=== PATIENT | female | born 1975 | race Caucasian/White ===

== ENCOUNTER 2019-01-26 11:13 | Emergency (ER) | payer OTHER ==
[2019-01-26 13:33] LABS: ADD MAN DIFF? NO
[2019-01-26 13:35] LABS: BASOPHIL # 0.1 10^3/ul (0.0-0.1); BASOPHILS % 1.1 % (0.0-2.0); EOSINOPHILS # 0.2 10^3/ul (0.0-0.5); HEMOGLOBIN 13.7 g/dl (12.0-16.0); LYMPHOCYTES % 27.9 % (15.0-51.0); MEAN CORPUSCULAR HEMOGLOBIN 28.8 pg (29.0-33.0); MEAN CORPUSCULAR HGB CONC 33.4 g/dl (32.0-37.0); MEAN CORPUSCULAR VOLUME 86.3 fl (82.0-101.0); MEAN PLATELET VOLUME 10.3 fl (7.4-10.4); MONOCYTE # 0.6 10^3/ul (0.3-0.9); MONOCYTES % 8.1 % (0.0-11.0); NEUTROPHIL # 4.2 10^3/ul (1.6-7.5); NEUTROPHILS % 59.8 % (39.0-77.0); PLATELET COUNT 294 10^3/UL (140-415); RED BLOOD COUNT 4.75 10^6/ul (4.20-5.40); RED CELL DISTRIBUTION WIDTH 12.7 % (11.5-14.5)
[2019-01-26 13:35] LABS: WHITE BLOOD COUNT 7.1 10^3/ul (4.8-10.8)
[2019-01-26 13:59] LABS: PHOSPHORUS 3.9 mg/dl (2.5-4.9)
[2019-01-26 13:59] LABS: MAGNESIUM 2.1 mg/dl (1.7-2.5)
[2019-01-26 14:00] LABS: ALANINE AMINOTRANSFERASE 26 IU/L (13-69); ALBUMIN 4.4 g/dl (3.3-4.9); ALBUMIN/GLOBULIN RATIO 1.51; ALKALINE PHOSPHATASE 139 IU/L (42-121); ANION GAP 8 (5-13); ASPARTATE AMINO TRANSFERASE 17 IU/L (15-46); BILIRUBIN,INDIRECT 0.3 mg/dl (0-1.1); BILIRUBIN,TOTAL 0.3 mg/dl (0.2-1.3); BLOOD UREA NITROGEN 7 mg/dl (7-20); CALCIUM 9.9 mg/dl (8.4-10.2); CARBON DIOXIDE 23 mmol/L (21-31); CHLORIDE 111 mmol/L (97-110); CREATININE 0.76 mg/dl (0.44-1.00); Estimated GFR > 60 mL/min (>60); GLUCOSE 93 mg/dl (70-220); POTASSIUM 4.4 mmol/L (3.5-5.1); SODIUM 142 mmol/L (135-144); TOTAL PROTEIN 7.3 g/dl (6.1-8.1)
[2019-01-26 14:10] LABS: B-TYPE NATRIURETIC PEPTIDE 125 PG/ML (0-125); TROPONIN-I < 0.012 ng/ml (0.000-0.120)
[2019-01-26] MEDS: SOD CHLORIDE 0.9% 1,000 ML IV (16:04)
[2019-01-26] MEDS: HYDROmorphONE 0.5 MG/0.5 ML SYG IV (16:04)
[2019-01-26] MEDS: HYDROmorphONE 2 MG TAB PO (20:15)
== END 2019-01-26 20:19 | disposition home or self-care (01) ==
LOC: E/R 11:13
DX: R07.89 Other chest pain (principal); J45.909 Unspecified asthma, uncomplicated; F17.210 Nicotine dependence, cigarettes, uncomplicated; R19.7 Diarrhea, unspecified; Z91.040 Latex allergy status; Z91.010 Allergy to peanuts
CPT/HCPCS: 71045; 80053; 83735; 83880; 84100; 84484; 85025; 93005; 96374; 99285-25

== ENCOUNTER 2019-02-16 17:46 | Emergency (ER) | payer SELFPAY, OTHER | END 2019-02-16 21:57 | disposition left against medical advice (07) | LOC: E/R 17:46 | DX: Z53.21 Procedure and treatment not carried out due to patient leaving prior to being seen by health care provider (principal) ==

== ENCOUNTER 2019-03-02 12:47 | Inpatient (IN) | payer OTHER ==
[2019-03-02] MEDS: SOD CHLORIDE 0.9% 1,000 ML IV ×2 (15:50→17:36)
[2019-03-02 15:57] LABS: URINE BLOOD (Dip) POC Negative (NEGATIVE); URINE GLUCOSE (Dip) POC Negative (NEGATIVE); URINE KETONES (Dip) POC Trace (NEGATIVE); URINE LEUKOCYTE EST (Dip) POC Trace (NEGATIVE); URINE NITRITE (Dip) POC Negative (NEGATIVE); URINE TOTAL PROTEIN POC 1+ (NEGATIVE)
[2019-03-02 15:57] LABS: URINE PH (Dip) POC 6.5 (5.0-8.5)
[2019-03-02] MEDS: IPRATROPIUM (NEB) 0.5 MG/2.5 ML AMP HHN (15:58)
[2019-03-02] MEDS: LEVALBUTEROL (NEB) 1.25 MG/0.5 ML AMP HHN (15:58)
[2019-03-02 16:18] LABS: ADD MAN DIFF? NO
[2019-03-02 16:20] LABS: BASOPHILS % 0.5 % (0.0-2.0); EOSINOPHILS # 0.2 10^3/ul (0.0-0.5); EOSINOPHILS % 2.2 % (0.0-7.0); HEMATOCRIT 40.4 % (37.0-47.0); LYMPHOCYTES # 1.9 10^3/ul (0.8-2.9); LYMPHOCYTES % 23.3 % (15.0-51.0); MEAN CORPUSCULAR HEMOGLOBIN 28.4 pg (29.0-33.0); MEAN CORPUSCULAR HGB CONC 32.2 g/dl (32.0-37.0); MEAN CORPUSCULAR VOLUME 88.2 fl (82.0-101.0); MEAN PLATELET VOLUME 10.7 fl (7.4-10.4); MONOCYTE # 0.6 10^3/ul (0.3-0.9); MONOCYTES % 6.8 % (0.0-11.0); NEUTROPHIL # 5.4 10^3/ul (1.6-7.5); PLATELET COUNT 254 10^3/UL (140-415); RED BLOOD COUNT 4.58 10^6/ul (4.20-5.40); RED CELL DISTRIBUTION WIDTH 12.8 % (11.5-14.5)
[2019-03-02 16:20] LABS: WHITE BLOOD COUNT 8.1 10^3/ul (4.8-10.8)
[2019-03-02 16:40] LABS: ALANINE AMINOTRANSFERASE 35 IU/L (13-69); ALBUMIN 4.1 g/dl (3.3-4.9); ALBUMIN/GLOBULIN RATIO 1.46; ALKALINE PHOSPHATASE 139 IU/L (42-121); ANION GAP 9 (5-13); ASPARTATE AMINO TRANSFERASE 23 IU/L (15-46); BILIRUBIN,INDIRECT 0.4 mg/dl (0-1.1); BILIRUBIN,TOTAL 0.4 mg/dl (0.2-1.3); BLOOD UREA NITROGEN 16 mg/dl (7-20); CALCIUM 9.6 mg/dl (8.4-10.2); CARBON DIOXIDE 26 mmol/L (21-31); CHLORIDE 107 mmol/L (97-110); CREATININE 0.97 mg/dl (0.44-1.00); Estimated GFR > 60 mL/min (>60); GLUCOSE 89 mg/dl (70-220); LIPASE 15 U/L (23-300); POTASSIUM 4.2 mmol/L (3.5-5.1); SODIUM 142 mmol/L (135-144); TOTAL PROTEIN 6.9 g/dl (6.1-8.1)
[2019-03-02] MEDS ORDERED: TIZANIDINE 2 MG TAB PO (22:00)
[2019-03-02] MEDS ORDERED: ACET/BUTAL/CAFF TAB PO (22:00)
[2019-03-03] MEDS: SUMATRIPTAN 50 MG TAB PO (00:04)
[2019-03-03] MEDS: LEVOFLOXACIN 500 MG TAB PO ×2 (00:21→15:12)
[2019-03-03] MEDS: ZOLPIDEM 5 MG TAB PO ×2 (00:22→20:49)
[2019-03-03] MEDS: POTASSIUM CHLORIDE 10 MEQ in SOD CHLORIDE 0.9% 1,000 ML IV ×4 (00:29→17:19)
[2019-03-03] MEDS: ALPRAZOLAM 0.5 MG TAB PO ×2 (02:07→08:32)
[2019-03-03 06:13] LABS: ADD MAN DIFF? NO
[2019-03-03 06:21] LABS: BASOPHILS % 0.6 % (0.0-2.0); EOSINOPHILS # 0.3 10^3/ul (0.0-0.5); HEMATOCRIT 39.3 % (37.0-47.0); HEMOGLOBIN 12.6 g/dl (12.0-16.0); LYMPHOCYTES # 1.7 10^3/ul (0.8-2.9); LYMPHOCYTES % 23.4 % (15.0-51.0); MEAN CORPUSCULAR HEMOGLOBIN 28.3 pg (29.0-33.0); MEAN CORPUSCULAR HGB CONC 32.1 g/dl (32.0-37.0); MEAN CORPUSCULAR VOLUME 88.3 fl (82.0-101.0); MONOCYTE # 0.6 10^3/ul (0.3-0.9); MONOCYTES % 8.5 % (0.0-11.0); NEUTROPHIL # 4.5 10^3/ul (1.6-7.5); NEUTROPHILS % 63.4 % (39.0-77.0); PLATELET COUNT 249 10^3/UL (140-415); RED BLOOD COUNT 4.45 10^6/ul (4.20-5.40); RED CELL DISTRIBUTION WIDTH 12.6 % (11.5-14.5)
[2019-03-03 06:21] LABS: WHITE BLOOD COUNT 7.1 10^3/ul (4.8-10.8)
[2019-03-03 06:40] LABS: ANION GAP 5 (5-13); BLOOD UREA NITROGEN 12 mg/dl (7-20); CALCIUM 9.6 mg/dl (8.4-10.2); CARBON DIOXIDE 26 mmol/L (21-31); CHLORIDE 110 mmol/L (97-110); CREATININE 0.74 mg/dl (0.44-1.00); Estimated GFR > 60 mL/min (>60); GLUCOSE 72 mg/dl (70-220); POTASSIUM 4.4 mmol/L (3.5-5.1); SODIUM 141 mmol/L (135-144)
[2019-03-03] MEDS: PANTOPRAZOLE (EC) 40 MG TAB PO (06:51)
[2019-03-03] MEDS: OXCARBAZEPINE 300 MG TAB PO ×2 (08:30→20:34)
[2019-03-03] MEDS: DICYCLOMINE 10 MG CAP PO ×2 (08:30→20:35)
[2019-03-03] MEDS: LORATADINE 10 MG TAB PO (08:30)
[2019-03-03] MEDS ORDERED: LACTOBACILLUS COMBO NO 10 PO (09:00)
[2019-03-03] MEDS ORDERED: NON-FORMULARY/PATIENT OWN MED (Varenicline Tartrate (Chantix) 1 MG) PO (09:00)
[2019-03-03] MEDS: GUAIFENESIN LA 600 MG TABSR PO ×2 (09:40→20:34)
[2019-03-03] MEDS: ONDANSETRON 4 MG TAB PO (09:40)
[2019-03-03] MEDS: HYDROmorphONE 2 MG TAB PO ×3 (09:40→20:34)
[2019-03-03 11:22] LABS: B-TYPE NATRIURETIC PEPTIDE 108 PG/ML (0-125)
[2019-03-03 12:40] LABS: LACTIC ACID 0.8 mmol/L (0.5-2.0)
[2019-03-03 12:41] LABS: TROPONIN-I < 0.012 ng/ml (0.000-0.120)
[2019-03-03 12:59] LABS: PROTIME 13.3 Sec (11.9-14.9)
[2019-03-03 13:57] LABS: D-DIMER < 220.00 ng/ml (<460)
[2019-03-03] MEDS: ALBUTEROL/IPRATROPIUM (NEB) 3 ML AMP HHN ×3 (14:44→22:49)
[2019-03-03] MEDS: predniSONE 20 MG TAB GTB (15:12)
[2019-03-03 19:42] LABS: TROPONIN-I < 0.012 ng/ml (0.000-0.120)
[2019-03-03] MEDS: PAROXETINE 20 MG TAB PO (20:34)
[2019-03-03] MEDS: DOCUSATE SODIUM 100 MG CAP PO (20:34)
[2019-03-03] MEDS: MONTELUKAST 10 MG TAB PO (20:34)
[2019-03-03] MEDS: HEPARIN 5,000 UNIT/1 ML VIAL SC (20:40)
[2019-03-04] MEDS: POTASSIUM CHLORIDE 10 MEQ in SOD CHLORIDE 0.9% 1,000 ML IV ×3 (00:19→14:15)
[2019-03-04] MEDS: ALPRAZOLAM 0.5 MG TAB PO (00:54)
[2019-03-04 01:20] LABS: TROPONIN-I < 0.012 ng/ml (0.000-0.120)
[2019-03-04] MEDS: PANTOPRAZOLE (EC) 40 MG TAB PO (05:25)
[2019-03-04 06:18] LABS: ADD MAN DIFF? NO
[2019-03-04 06:32] LABS: WHITE BLOOD COUNT 7.4 10^3/ul (4.8-10.8)
[2019-03-04 06:32] LABS: BASOPHILS % 0.3 % (0.0-2.0); EOSINOPHILS % 0.3 % (0.0-7.0); HEMATOCRIT 36.4 % (37.0-47.0); HEMOGLOBIN 11.7 g/dl (12.0-16.0); LYMPHOCYTES # 1.6 10^3/ul (0.8-2.9); LYMPHOCYTES % 21.4 % (15.0-51.0); MEAN CORPUSCULAR HEMOGLOBIN 28.5 pg (29.0-33.0); MEAN CORPUSCULAR HGB CONC 32.1 g/dl (32.0-37.0); MEAN CORPUSCULAR VOLUME 88.6 fl (82.0-101.0); MEAN PLATELET VOLUME 11.1 fl (7.4-10.4); MONOCYTE # 0.5 10^3/ul (0.3-0.9); MONOCYTES % 7.3 % (0.0-11.0); NEUTROPHIL # 5.2 10^3/ul (1.6-7.5); NEUTROPHILS % 70.4 % (39.0-77.0); PLATELET COUNT 216 10^3/UL (140-415); RED BLOOD COUNT 4.11 10^6/ul (4.20-5.40); RED CELL DISTRIBUTION WIDTH 12.6 % (11.5-14.5)
[2019-03-04 07:02] LABS: PHOSPHORUS 4.6 mg/dl (2.5-4.9)
[2019-03-04 07:15] LABS: ALANINE AMINOTRANSFERASE 22 IU/L (13-69); ALBUMIN 3.6 g/dl (3.3-4.9); ALBUMIN/GLOBULIN RATIO 1.38; ALKALINE PHOSPHATASE 118 IU/L (42-121); ANION GAP 5 (5-13); ASPARTATE AMINO TRANSFERASE 17 IU/L (15-46); BILIRUBIN,INDIRECT 0.2 mg/dl (0-1.1); BILIRUBIN,TOTAL 0.2 mg/dl (0.2-1.3); BLOOD UREA NITROGEN 10 mg/dl (7-20); CALCIUM 9.3 mg/dl (8.4-10.2); CARBON DIOXIDE 26 mmol/L (21-31); CHLORIDE 108 mmol/L (97-110); CREATININE 0.66 mg/dl (0.44-1.00); Estimated GFR > 60 mL/min (>60); GLUCOSE 96 mg/dl (70-220); POTASSIUM 3.9 mmol/L (3.5-5.1); SODIUM 139 mmol/L (135-144); TOTAL PROTEIN 6.2 g/dl (6.1-8.1)
[2019-03-04] MEDS: ALBUTEROL/IPRATROPIUM (NEB) 3 ML AMP HHN ×2 (08:53→14:19)
[2019-03-04] MEDS: LORATADINE 10 MG TAB PO (09:44)
[2019-03-04] MEDS: DICYCLOMINE 10 MG CAP PO (09:44)
[2019-03-04] MEDS: LEVOFLOXACIN 500 MG TAB PO (09:44)
[2019-03-04] MEDS: OXCARBAZEPINE 300 MG TAB PO (09:44)
[2019-03-04] MEDS: predniSONE 20 MG TAB GTB (09:45)
[2019-03-04] MEDS: GUAIFENESIN LA 600 MG TABSR PO (09:45)
[2019-03-04] MEDS: HEPARIN 5,000 UNIT/1 ML VIAL SC (09:50)
[2019-03-04] MEDS: HYDROmorphONE 2 MG TAB PO (09:55)
[2019-03-04] MEDS: ONDANSETRON 4 MG TAB PO (09:59)
== END 2019-03-04 16:20 | disposition home or self-care (01) | DRG 192 ==
LOC: E/R 12:47 → MS1 20:53
PROVIDERS: Internal Medicine
PROC: 3E0F7GC Introduction of Other Therapeutic Substance into Respiratory Tract, Via Natural or Artificial Opening (ICD-10-PCS; principal; 2019-03-02)
DX: J44.1 Chronic obstructive pulmonary disease with (acute) exacerbation (principal); R19.7 Diarrhea, unspecified; I95.9 Hypotension, unspecified; Z72.0 Tobacco use
CPT/HCPCS: 71045; 74176; 80048; 80053; 81003; 81025; 82533; 83605; 83690; 83735; 83880; 84100; 84484; 85025; 85378; 85610; 93005; 93306; 94640; 94664; 97161; 99285-25

== ENCOUNTER 2019-03-17 16:08 | Emergency (ER) | payer OTHER ==
[2019-03-17] MEDS: ALBUTEROL 0.5% (NEB) 2.5 MG/0.5 ML AMP INH (17:46)
[2019-03-17 17:58] LABS: ADD MAN DIFF? NO
[2019-03-17 18:00] LABS: BASOPHIL # 0.1 10^3/ul (0.0-0.1); EOSINOPHILS # 0.1 10^3/ul (0.0-0.5); HEMATOCRIT 40.9 % (37.0-47.0); HEMOGLOBIN 13.4 g/dl (12.0-16.0); LYMPHOCYTES # 2.3 10^3/ul (0.8-2.9); LYMPHOCYTES % 32.6 % (15.0-51.0); MEAN CORPUSCULAR HEMOGLOBIN 28.5 pg (29.0-33.0); MEAN CORPUSCULAR HGB CONC 32.8 g/dl (32.0-37.0); MEAN PLATELET VOLUME 10.5 fl (7.4-10.4); MONOCYTE # 0.6 10^3/ul (0.3-0.9); MONOCYTES % 8.6 % (0.0-11.0); NEUTROPHIL # 3.9 10^3/ul (1.6-7.5); NEUTROPHILS % 55.5 % (39.0-77.0); PLATELET COUNT 244 10^3/UL (140-415); RED CELL DISTRIBUTION WIDTH 12.9 % (11.5-14.5)
[2019-03-17 18:00] LABS: WHITE BLOOD COUNT 7.1 10^3/ul (4.8-10.8)
[2019-03-17] MEDS: predniSONE 20 MG TAB PO (18:00)
[2019-03-17 18:24] LABS: ALANINE AMINOTRANSFERASE 25 IU/L (13-69); ALBUMIN 4.5 g/dl (3.3-4.9); ALBUMIN/GLOBULIN RATIO 1.55; ALKALINE PHOSPHATASE 127 IU/L (42-121); ANION GAP 9 (5-13); ASPARTATE AMINO TRANSFERASE 18 IU/L (15-46); BILIRUBIN,INDIRECT 0.2 mg/dl (0-1.1); BILIRUBIN,TOTAL 0.2 mg/dl (0.2-1.3); BLOOD UREA NITROGEN 10 mg/dl (7-20); CALCIUM 9.9 mg/dl (8.4-10.2); CARBON DIOXIDE 24 mmol/L (21-31); CHLORIDE 106 mmol/L (97-110); CREATININE 0.86 mg/dl (0.44-1.00); Estimated GFR > 60 mL/min (>60); GLUCOSE 95 mg/dl (70-220); POTASSIUM 4.1 mmol/L (3.5-5.1); SODIUM 139 mmol/L (135-144); TOTAL PROTEIN 7.4 g/dl (6.1-8.1)
[2019-03-17 18:35] LABS: TROPONIN-I < 0.012 ng/ml (0.000-0.120)
[2019-03-17 19:27] LABS: ADD UMIC YES; UR ASCORBIC ACID NEGATIVE (NEGATIVE); UR BACTERIA FEW /HPF (NONE SEEN); UR BILIRUBIN (Dip) NEGATIVE (NEGATIVE); UR BLOOD (Dip) 1+ mg/dL (NEGATIVE); UR CLARITY CLEAR (CLEAR); UR COLOR STRAW (YELLOW); UR GLUCOSE (Dip) NEGATIVE (NEGATIVE); UR KETONES (Dip) NEGATIVE (NEGATIVE); UR LEUKOCYTE ESTERASE (Dip) NEGATIVE Leu/ul (NEGATIVE); UR NITRITE (Dip) NEGATIVE (NEGATIVE); UR RBC 0 /HPF (0-5); UR SPECIFIC GRAVITY (Dip) 1.005 (1.003-1.030); UR SQUAMOUS EPITHELIAL CELL FEW /HPF (FEW); UR TOTAL PROTEIN (Dip) NEGATIVE (NEGATIVE); UR UROBILINOGEN (Dip) NEGATIVE (NEGATIVE); UR WBC 2 /HPF (0-5)
[2019-03-17] MEDS: OXYCODONE/ACETAMINOPHEN (5/325) TAB PO (19:48)
== END 2019-03-17 20:18 | disposition home or self-care (01) ==
LOC: E/R 16:08
DX: J44.1 Chronic obstructive pulmonary disease with (acute) exacerbation (principal); G89.4 Chronic pain syndrome; N39.0 Urinary tract infection, site not specified
CPT/HCPCS: 71045; 80053; 81001; 84484; 85025; 93005; 94644; 99285-25